=== PATIENT | male | born 1985 | race Caucasian/White ===

== ENCOUNTER 2018-03-29 13:05 | Inpatient (IN) | payer MEDICAID, SELFPAY ==
[2018-03-29 14:06] VITALS: BP 122/81; PULSE 115; RESP 18; TEMP 37.1; O2SAT 100; BMI 22.5
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
[2018-03-29] MEDS: oxyCODONE 5 MG Tablet PO (16:35)
[2018-03-29] MEDS: Magnesium Hydroxide 30 ML UDC PO (16:36)
[2018-03-29] MEDS: Acetaminophen 500 MG Tablet 1000 MG PO ×2 (16:36→21:30)
[2018-03-29] MEDS: Bisacodyl 10 MG Suppository RECTAL (17:29)
[2018-03-29] MEDS: Methocarbamol 500 MG Tablet 1250 MG PO ×2 (18:06→21:29)
[2018-03-29] MEDS: Fleet Enema 1 ML RECTAL (18:58)
[2018-03-29] MEDS: Ipratropium/Albuterol Sulfate 3 ML AMPUL.NEB INHALATION (19:40)
[2018-03-29 19:45] VITALS: PULSE 112; RESP 16
[2018-03-29] MEDS: Enoxaparin 30 MG/0.3 ML Syringe SC (20:23)
[2018-03-29] MEDS: QUEtiapine 25 MG Tablet PO (20:24)
[2018-03-29] MEDS: BACITRACIN 15 GM Tube 1 APPLIC TOPICAL (20:24)
[2018-03-29 20:29] VITALS: BP 130/67; PULSE 106; RESP 16; TEMP 36.8; O2SAT 99
[2018-03-30] MEDS: oxyCODONE 5 MG Tablet PO ×5 (00:04→21:39)
[2018-03-30 00:21] LABS: Red Blood Cells-Urine 0 SEEN /hpf (0-5); Squamous Epithelial Cells - UA 0 SEEN /hpf (0-5)
[2018-03-30 00:31] LABS: Color, Urine Yellow (Yellow); Glucose, Dipstick Normal (Normal); Ketone-Dipstick Negative (Negative); Leukocyte Esterase-Dipstick 25 /ul (Negative); Nitrite-Dipstick Negative (Negative); Occult Blood-Urine Negative /ul (Negative); Protein-Dipstick Negative (Negative); Urine Bilirubin Dipstick Negative (Negative); Urine Clarity Clear (Clear); Urine Urobilinogen 8 mg/dl (Normal); Urine pH 6.5 (5.0 - 8.0)
[2018-03-30 00:43] LABS: Bacteria RARE /hpf (None Seen); Mucous, Urine 1+ /hpf (<or=2+); White Blood Cells 0-5 SEEN /hpf (0-5)
[2018-03-30] MEDS: Acetaminophen 500 MG Tablet 1000 MG PO ×3 (06:25→21:40)
[2018-03-30] MEDS: Enoxaparin 30 MG/0.3 ML Syringe SC ×2 (06:28→17:56)
[2018-03-30 07:28] LABS: Absolute Lymphocyte Count 1.41 X10^3/ul (0.83-4.51); Absolute Neutrophil Count 6.9 X10^3/uL (2.0-7.7); Basophil# 0.02 X10^3/uL; Basophil% 0.2 % (0-1); Eosinophil# 0.29 X10^3/uL; Eosinophils% 2.9 % (0-5); Hematocrit 26.4 % (40-54); Hemoglobin 8.5 g/dl (13.0-16.5); Lymphocyte # 1.41 X10^3/ul (4.0); Lymphocyte % 14.1 % (19-41); Mean Corp Hgb Conc 32.2 g/gl (32-36); Mean Corpuscular Hgb 31.1 pg (27.0-32.0); Mean Corpuscular Volume 96.7 fL (80-94); Mean Platelet Vol. 9.2 fl (6.2-12.0); Monocyte# 1.26 X10^3/uL; Monocyte% 12.6 % (0-10); Neutrophil # 6.94 X10^3/uL (2.7-7.7); Neutrophil % 69.3 % (47-70); Platelet Count 398 K/mm3 (150-450); RBC Distribution Width CV 16.7 % (11.6-14.6); RBC Distribution Width SD 51.5 fl (35.1-43.9); Red Blood Count 2.73 M/mm3 (4.6-6.2)
[2018-03-30 07:30] LABS: POSITIVE COUNT NO; POSITIVE DIFFERENTIAL NO; POSITIVE MORPHOLOGY NO
[2018-03-30 07:40] LABS: Anion Gap 8 (5-15); BUN 21 mg/dL (7-18); Calcium,Total 8.1 mg/dL (8.5-10.1); Chloride 100 mmol/L (98-107); Creatinine, Serum 0.66 mg/dL (0.70-1.30); EST Glomerular Filtration Rate 148 mL/min (>60); Est Glom Filt Rate - Afr Amer 179 mL/min (>60); Glucose 108 mg/dL (74-106); Potassium 3.8 mmol/L (3.5-5.1); Sodium Level 137 mmol/L (136-145)
[2018-03-30 07:48] VITALS: PULSE 108; RESP 18; O2SAT 99
[2018-03-30] MEDS: Ipratropium/Albuterol Sulfate 3 ML AMPUL.NEB INHALATION (07:48)
[2018-03-30 08:00] VITALS: BP 124/66; PULSE 104; RESP 16; TEMP 36.8; O2SAT 100
[2018-03-30] MEDS: Senna/Docusate Sodium 1 Tablet 2 TABLET PO ×2 (08:24→21:41)
[2018-03-30] MEDS: Lidocaine 5% Patch 1 PATCH TOPICAL (08:24)
[2018-03-30] MEDS: Methocarbamol 500 MG Tablet 1250 MG PO ×4 (08:24→21:41)
[2018-03-30] MEDS: BACITRACIN 15 GM Tube 1 APPLIC TOPICAL ×2 (08:30→21:44)
--- NOTE | 2018-03-30 10:46 | NURSING ---
spoke with DR. Candelaria patient's ortho surgeon from [facility] for clarifications on discharge orders. Patient is to be NWB to BLE and no knee immobilizer.
--- NOTE | 2018-03-30 11:29 | NURSING ---
patient having severe pain to surgical areas and to hip and pelvis. rates pain 10/10 as a constant throbbing pain after routine tylenol and oxyir given this am. patient is participating in therapy without complaints. patient given ice and scrotum elevated d/t area is edematous. serous sanguinous drainage continues to left hip changed abd drsg x2 this shift. no s/sx of infection noted, edema remains to area. dr french aware of increase pain. oxyir changed to every 4 hours prn and dursgesic 25 mcg patch added.
[2018-03-30] MEDS: fentaNYL 25 MCG Patch TRANSDERM. (12:20)
[2018-03-30] MEDS: Hydrocortisone 2.5% Crm 1 APPLIC TOPICAL ×2 (13:09→21:43)
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
[2018-03-30 20:32] VITALS: BP 137/76; PULSE 100; RESP 18; TEMP 36.8; O2SAT 95
[2018-03-30] MEDS: QUEtiapine 25 MG Tablet PO (21:40)
[2018-03-31] MEDS: oxyCODONE 5 MG Tablet PO ×4 (05:08→20:34)
[2018-03-31] MEDS: Acetaminophen 500 MG Tablet 1000 MG PO ×3 (05:09→21:44)
[2018-03-31] MEDS: Enoxaparin 30 MG/0.3 ML Syringe SC ×2 (06:06→18:08)
[2018-03-31 07:09] VITALS: O2SAT 93
[2018-03-31] MEDS: BACITRACIN 15 GM Tube 1 APPLIC TOPICAL ×2 (08:52→21:47)
[2018-03-31] MEDS: Hydrocortisone 2.5% Crm 1 APPLIC TOPICAL ×2 (08:52→21:46)
[2018-03-31] MEDS: Senna/Docusate Sodium 1 Tablet 2 TABLET PO ×2 (08:53→21:45)
[2018-03-31] MEDS: Lidocaine 5% Patch 1 PATCH TOPICAL (08:53)
[2018-03-31] MEDS: Methocarbamol 500 MG Tablet 1250 MG PO ×4 (08:53→21:44)
[2018-03-31 08:54] VITALS: BP 131/82; PULSE 103; RESP 16; TEMP 36.7; O2SAT 99
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
--- NOTE | 2018-03-31 15:11 | REHABEVAL_ITS ---
Admission Information Status Changes from Prescreening?: No changes Identified Actual Problem List:: Pain, ALteration in Cmfrt, Mobility Impaired, Self Care Deficit, Ineffect.D/C Plan r/t Psy Potential Problem List:: DVT, Bleeding, Infection, UTI, Aspiration, Falls, Skin Integrity, Depression Risk of Complications DVT: LMWH, ERIKA Hose, Sequential Compression Device Bleeding: Monitor Lab Values, Nursing to Teach Precautions for anti-coagulation therapy., Wound, if applicable, to be assessed every shift., Stroke patients assessed for lethargy or change in status. Infection: Clinical Staff to Monitor for S/S of infection:, S/S of infection include fever, redness, warmth, etc. Urinary Tract Infection: Monitor for frequency, burning, discomfort, or incontinence., Nursing will obtain urine sample for urinalysis and C&S when ordered. Aspiration: Clinical staff will monitor for coughing, drooling, congestion., Speech will evaluate swallowing and dsyphasia., Nursing will monitor patient swallowing during meals. Falls: Patient will be evaluated for Fall Precautions, Patient will be placed on Fall Precautions as indicated per protocol. Skin Breakdown: Nursing will assess skin daily using assessment tool., Nursing will place on Skin Breakdown Precautions as indicated. Pain: Clinical staff will assess patient's pain level per protocol., Medications will be given, if needed, and the pain level reassessed., Other methods: Massage, distraction, decrease stimulus, etc. used PRN. Plan of Care Patient requires physician specializing in physical medicine and rehab oversight to provide close medical supervision of rehab issues including: Pain Management, Sleep Problems, Bowel and Bladder, Medical and co-morbidity Management, DVT prophylaxis, Rehabilitation Leadership, Coordination of treatment team Patient needs Physical Therapy: For a minimum of 1 hour, At least 5 out of 7 days Patient needs Physical Therapy to improve:: Mobility, Mobility, Mobility, Strengthening, Transfers, Stretching, ROM, Endurance, Stairs, Gait, Balance Patient needs Occupational Therapy: For a minimum of 1 hour, At least 5 out of 7 days Patient needs Occupational Therapy to improve ADL's incl.: Eating, Grooming, Bathing, Dressing, Toileting, Toilet transfers, Community Reintegration, Higher functioning activities, Household tasks, Adaptive Equipment, Splinting, Other activities as determined Patient requires 24/ Rehabilitation Nursing for: Pain Issues, Identifying and preventing risk factors, Monitoring and reporting current medical conditions, Assisting with ambulation, transfer, and all ADL's, Teaching patients about disease process and medications, Family teaching, Providing safe environment, Bowel and Bladder Issues, Skin integrity, Medication Management Patient needs Mountain Bike Guide/ Case Management for: Discharge Planning, Arranging Home Equipment or Services, Family Interventions Patient needs Dietary and Nutrition Services for: Adequate Nutrition, Nutritional Supplements, Nutritional Education Goals Patient will remain: free from falls, or injury at time of discharge. Patient will perform bed mobility at: MOD I level of assist. Patient will complete transfers from bed to chair at: MOD I level of assist. Patient will ambulate: 100 feet, with MOD I assist, with LRD Patient will complete upper body dressing at: MOD I level of assist. Patient will complete lower body dressing at: MOD I level of assist. Patient will complete toileting at: MOD I level of assist. Patient will perform bathing at: MOD I level of assist. Patient will complete grooming at: MOD I level of assist. Patient will complete home management skills at: MOD I level of assist. Patient will achieve: 12 stairs, at MOD I assist Patient will have pain level of: of 3 or less Patient's skin will: remain intact, free from infection. Patient will receive: adequate nutrition. Discharge Planning Pt Prognosis for Sig. Practical Improv. w/in Reasonable Time: Good Anticipated D/C Destination: Home with Outpt Therapy Was Preadmission Assessment Accurate?: Yes
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
--- NOTE | 2018-03-31 17:58 | NURSING ---
Dr. french aware of CT scans of abdomen and head. No new orders at this time. patient is no acute distress.
[2018-03-31 20:36] VITALS: BP 117/77; PULSE 114; RESP 18; TEMP 36.9; O2SAT 98
[2018-03-31 20:45] VITALS: PULSE 114; RESP 18; O2SAT 98
[2018-03-31] MEDS: QUEtiapine 25 MG Tablet PO (21:44)
--- NOTE | 2018-04-01 02:49 | NURSING ---
REVIEWED AND AGREE WITH [employer]ER'S FIM AND HANDOFF CHARTING.
[2018-04-01] MEDS: Acetaminophen 500 MG Tablet 1000 MG PO ×3 (05:29→21:00)
[2018-04-01] MEDS: Enoxaparin 30 MG/0.3 ML Syringe SC ×2 (05:29→17:55)
[2018-04-01 06:42] VITALS: O2SAT 98
[2018-04-01] MEDS: Divalproex (ER) 500 MG Tablet PO (07:38)
[2018-04-01] MEDS: Lidocaine 5% Patch 1 PATCH TOPICAL (07:38)
[2018-04-01] MEDS: Methocarbamol 500 MG Tablet 1250 MG PO ×4 (07:39→20:55)
[2018-04-01] MEDS: Senna/Docusate Sodium 1 Tablet 2 TABLET PO ×2 (07:39→20:58)
[2018-04-01] MEDS: oxyCODONE 5 MG Tablet PO ×4 (07:39→20:19)
[2018-04-01] MEDS: Polyethylene Glycol 3350 17 GM PACKET PO (07:39)
[2018-04-01] MEDS: BACITRACIN 15 GM Tube 1 APPLIC TOPICAL ×2 (07:44→20:46)
[2018-04-01] MEDS: Hydrocortisone 2.5% Crm 1 APPLIC TOPICAL ×2 (07:46→20:49)
[2018-04-01 08:31] VITALS: BP 144/80; PULSE 98; RESP 16; TEMP 36.6; O2SAT 99
--- NOTE | 2018-04-01 10:43 | PCM.PN.NEU ---
Subjective: Patient seen and examined. No new complaints, pain is controlled. Denies any headaches today, was started on Depakote 500mg daily, on admission. Continues to have some slight scrotal edema, but states it is getting better, no issues with urinating. Tolerating therapy. - Physical Exam General: Alert, Oriented x3, Cooperative HEENT: Atraumatic, PERRLA, EOMI, Normocephalic Neck: Supple, No JVD, Negative Carotid Bruits Lungs: Clear to auscultation, Normal air movement Cardiovascular: Regular rate, No murmurs Abdomen: Bowel Sounds Present, Soft, Non Tender Extremities: No edema, Capillary Refill Less than 3 Seconds Skin: No rashes, No breakdown Musculoskeletal: No Tenderness to Palpation of Joints or Extremities Neurological: Cranial nerves II-XII grossly intact Psych/Mental Status: Normal Affect, Appropriate, Alert and oriented to time, place, person, mood and affect Vital Signs Temp Pulse Resp BP Pulse Ox 97.9 F 98 16 144/80 H 99 04/01/18 08:31 04/01/18 08:31 04/01/18 08:31 04/01/18 08:31 04/01/18 08:31 Oxygen Delivery Method Room Air Weight: 79.54 kg Body Mass Index (BMI) 22.5 Intake and Output for Last 24 Hours 03/30/18 03/31/18 04/01/18 23:59 23:59 23:59 Intake Total 240 / 240 240 / 240 Output Total 750 / 750 150 / 150 Balance -510 / -510 -150 / -150 240 / 240 Active Medications Acetaminophen (Tylenol) 650 mg PO Q4H PRN PRN PRN Reason: PAIN Acetaminophen (Tylenol) 1,000 mg PO Q8 [facility] Last Admin: 04/01/18 05:29 Dose: 1,000 mg Albuterol/Ipratropium (Duoneb) 3 ml INHALATION Q4H PRN PRN PRN Reason: SHORTNESS OF BREATH Bacitracin (Bacitracin Ointment) 1 applic TOPICAL BID [facility] PRN Reason: Protocol Last Admin: 04/01/18 07:44 Dose: 1 applic Bisacodyl (Dulcolax) 10 mg RECTAL .PRN X 1 PRN PRN Reason: Constipation Last Admin: 03/29/18 17:29 Dose: 10 mg Divalproex Sodium (Depakote Er) 500 mg PO DAILY [facility] Last Admin: 04/01/18 07:38 Dose: 500 mg Enoxaparin Sodium (Lovenox) 30 mg SC BID@0600,1800 [facility] Last Admin: 04/01/18 05:29 Dose: 30 mg Fentanyl (Duragesic Patch) 25 mcg TRANSDERM. Q3D [facility] Last Admin: 03/30/18 12:20 Dose: 25 mcg Hydrocortisone (Hytone) 1 applic TOPICAL BID [facility] PRN Reason: Protocol Stop: 04/04/18 22:01 Last Admin: 04/01/18 07:46 Dose: 1 applicatio Lidocaine (Lidoderm Patch) 1 patch TOPICAL DAILY [facility] PRN Reason: Protocol Last Admin: 04/01/18 07:38 Dose: 1 patch Magnesium Hydroxide (Milk Of Magnesia) 30 ml PO .PRN X 1 PRN PRN Reason: Constipation Last Admin: 03/29/18 16:36 Dose: 30 ml Methocarbamol (Robaxin) 1,250 mg PO 4X/DAY [facility] Last Admin: 04/01/18 07:39 Dose: 1,250 mg Nutritional Formula (Lactose Free) (Ensure Enlive) 120 ml PO 4X/DAY [facility] Last Admin: 04/01/18 07:42 Dose: 120 ml Oxycodone HCl (Oxyir) 5 - 10 mg PO Q4H PRN PRN PRN Reason: PAIN Last Admin: 04/01/18 07:39 Dose: 10 mg Polyethylene Glycol (Miralax) 17 gm PO DAILY [facility] Last Admin: 04/01/18 07:39 Dose: 17 gm Quetiapine Fumarate (Seroquel) 25 mg PO QHS [facility] Last Admin: 03/31/18 21:44 Dose: 25 mg Senna/Docusate Sodium (Senokot-S, Bonnie-Colace) 2 tablet PO BID [facility] Last Admin: 04/01/18 07:39 Dose: 2 tablet Medical Necessity - Tobacco Use Smoking Status: Heavy Smoker (>10/day) Tobacco Use: Cigarettes Assessment/Plan Debility due to pain consequent to complex pelvic fracture status post open reduction and internal fixation as well as left femur fracture status post rodding. He has probably a lumbosacral plexopathy as well at this point. This appears to be stable furthermore he has a history of migraine headaches. His skull fracture appears to be limited to his frontal sinus by report. Plan: Physical therapy for gait and balance Occupational Therapy for ADLs As needed analgesics Bowel protocol Headaches: Will repeat a CAT scan of his brain noncontrast and initiate Depakote ER 500 mg daily Hip flexor weakness: This is probably a plexopathy and appears stable by history since his accident and surgery. I will repeat a CAT scan of his a abdomen noncontrast to evaluate for hematoma. His surgery was performed approximately 10 days ago. He will need his sutures out but he is scheduled to follow-up with his surgeon apparently a phone call to set this up will take place tomorrow.
--- NOTE | 2018-04-01 10:46 | PN.NEURO_ITS ---
Subjective: Patient seen and examined. No new complaints, pain is controlled. Denies any headaches today, was started on Depakote 500mg daily, on admission. Continues to have some slight scrotal edema, but states it is getting better, no issues with urinating. Tolerating therapy. - Physical Exam General: Alert, Oriented x3, Cooperative HEENT: Atraumatic, PERRLA, EOMI, Normocephalic Neck: Supple, No JVD, Negative Carotid Bruits Lungs: Clear to auscultation, Normal air movement Cardiovascular: Regular rate, No murmurs Abdomen: Bowel Sounds Present, Soft, Non Tender Extremities: No edema, Capillary Refill Less than 3 Seconds Skin: No rashes, No breakdown Musculoskeletal: No Tenderness to Palpation of Joints or Extremities Neurological: Cranial nerves II-XII grossly intact Psych/Mental Status: Normal Affect, Appropriate, Alert and oriented to time, place, person, mood and affect Vital Signs Temp Pulse Resp BP Pulse Ox 97.9 F 98 16 144/80 H 99 04/01/18 08:31 04/01/18 08:31 04/01/18 08:31 04/01/18 08:31 04/01/18 08:31 Oxygen Delivery Method Room Air Weight: 79.54 kg Body Mass Index (BMI) 22.5 Intake and Output for Last 24 Hours 03/30/18 03/31/18 04/01/18 23:59 23:59 23:59 Intake Total 240 / 240 240 / 240 Output Total 750 / 750 150 / 150 Balance -510 / -510 -150 / -150 240 / 240 Active Medications Acetaminophen (Tylenol) 650 mg PO Q4H PRN PRN PRN Reason: PAIN Acetaminophen (Tylenol) 1,000 mg PO Q8 [facility] Last Admin: 04/01/18 05:29 Dose: 1,000 mg Albuterol/Ipratropium (Duoneb) 3 ml INHALATION Q4H PRN PRN PRN Reason: SHORTNESS OF BREATH Bacitracin (Bacitracin Ointment) 1 applic TOPICAL BID [facility] PRN Reason: Protocol Last Admin: 04/01/18 07:44 Dose: 1 applic Bisacodyl (Dulcolax) 10 mg RECTAL .PRN X 1 PRN PRN Reason: Constipation Last Admin: 03/29/18 17:29 Dose: 10 mg Divalproex Sodium (Depakote Er) 500 mg PO DAILY [facility] Last Admin: 04/01/18 07:38 Dose: 500 mg Enoxaparin Sodium (Lovenox) 30 mg SC BID@0600,1800 [facility] Last Admin: 04/01/18 05:29 Dose: 30 mg Fentanyl (Duragesic Patch) 25 mcg TRANSDERM. Q3D [facility] Last Admin: 03/30/18 12:20 Dose: 25 mcg Hydrocortisone (Hytone) 1 applic TOPICAL BID [facility] PRN Reason: Protocol Stop: 04/04/18 22:01 Last Admin: 04/01/18 07:46 Dose: 1 applicatio Lidocaine (Lidoderm Patch) 1 patch TOPICAL DAILY [facility] PRN Reason: Protocol Last Admin: 04/01/18 07:38 Dose: 1 patch Magnesium Hydroxide (Milk Of Magnesia) 30 ml PO .PRN X 1 PRN PRN Reason: Constipation Last Admin: 03/29/18 16:36 Dose: 30 ml Methocarbamol (Robaxin) 1,250 mg PO 4X/DAY [facility] Last Admin: 04/01/18 07:39 Dose: 1,250 mg Nutritional Formula (Lactose Free) (Ensure Enlive) 120 ml PO 4X/DAY [facility] Last Admin: 04/01/18 07:42 Dose: 120 ml Oxycodone HCl (Oxyir) 5 - 10 mg PO Q4H PRN PRN PRN Reason: PAIN Last Admin: 04/01/18 07:39 Dose: 10 mg Polyethylene Glycol (Miralax) 17 gm PO DAILY [facility] Last Admin: 04/01/18 07:39 Dose: 17 gm Quetiapine Fumarate (Seroquel) 25 mg PO QHS [facility] Last Admin: 03/31/18 21:44 Dose: 25 mg Senna/Docusate Sodium (Senokot-S, Bonnie-Colace) 2 tablet PO BID [facility] Last Admin: 04/01/18 07:39 Dose: 2 tablet Medical Necessity - Tobacco Use Smoking Status: Heavy Smoker (>10/day) Tobacco Use: Cigarettes Assessment/Plan Debility due to pain consequent to complex pelvic fracture status post open reduction and internal fixation as well as left femur fracture status post rodding. He has probably a lumbosacral plexopathy as well at this point. This appears to be stable furthermore he has a history of migraine headaches. His skull fracture appears to be limited to his frontal sinus by report. Plan: Physical therapy for gait and balance Occupational Therapy for ADLs As needed analgesics Bowel protocol Headaches: Will repeat a CAT scan of his brain noncontrast and initiate Depakote ER 500 mg daily Hip flexor weakness: This is probably a plexopathy and appears stable by history since his accident and surgery. I will repeat a CAT scan of his a abdomen noncontrast to evaluate for hematoma. His surgery was performed approximately 10 days ago. He will need his sutures out but he is scheduled to follow-up with his surgeon apparently a phone call to set this up will take place tomorrow.
[2018-04-01 18:16] VITALS: BP 123/68; PULSE 112; RESP 16; TEMP 36.7; O2SAT 99
--- NOTE | 2018-04-01 18:24 | NURSING ---
removed 2 stitches from L. elbow, area is clean, dry, intact, pt tolerated well.
[2018-04-01] MEDS: QUEtiapine 25 MG Tablet PO (20:58)
[2018-04-02] MEDS: oxyCODONE 5 MG Tablet PO ×6 (01:12→22:38)
[2018-04-02] MEDS: Enoxaparin 30 MG/0.3 ML Syringe SC ×2 (05:19→16:53)
[2018-04-02] MEDS: Acetaminophen 500 MG Tablet 1000 MG PO ×3 (06:43→21:24)
[2018-04-02 07:06] VITALS: O2SAT 96
[2018-04-02] MEDS: Lidocaine 5% Patch 1 PATCH TOPICAL (08:16)
[2018-04-02] MEDS: Methocarbamol 500 MG Tablet 1250 MG PO ×4 (08:19→21:25)
[2018-04-02] MEDS: Polyethylene Glycol 3350 17 GM PACKET PO (08:20)
[2018-04-02] MEDS: Divalproex (ER) 500 MG Tablet PO (08:21)
[2018-04-02] MEDS: Senna/Docusate Sodium 1 Tablet 2 TABLET PO ×2 (08:22→21:27)
[2018-04-02] MEDS: BACITRACIN 15 GM Tube 1 APPLIC TOPICAL ×2 (08:31→21:27)
[2018-04-02] MEDS: Hydrocortisone 2.5% Crm 1 APPLIC TOPICAL ×2 (08:31→21:27)
[2018-04-02 08:46] VITALS: BP 130/72; PULSE 99; RESP 18; TEMP 36.8; O2SAT 98
[2018-04-02] MEDS: fentaNYL 25 MCG Patch TRANSDERM. (10:14)
--- NOTE | 2018-04-02 15:38 | PCM.PN.NEU ---
Subjective: Patient seen and examined. No acute events overnight. Tolerating therapy. Continues to have some acute pain more in his left knee and hip area, increased his Fentanyl patch to 37.5mcq and added on Benadryl for itching when he take the Oxy IR. Tolerating regular diet. Incision sites are C/D/I, no drainage noted, no redness noted or edema along incisions. - Physical Exam General: Alert, Oriented x3, Cooperative HEENT: Atraumatic, PERRLA, EOMI, Normocephalic Neck: Supple, No JVD, Negative Carotid Bruits Lungs: Clear to auscultation, Normal air movement Cardiovascular: Regular rate, No murmurs Abdomen: Bowel Sounds Present, Soft, Non Tender Extremities: No edema, Capillary Refill Less than 3 Seconds Skin: No rashes, No breakdown Musculoskeletal: No Tenderness to Palpation of Joints or Extremities Neurological: Cranial nerves II-XII grossly intact Psych/Mental Status: Normal Affect, Appropriate, Alert and oriented to time, place, person, mood and affect Vital Signs Temp Pulse Resp BP Pulse Ox 98.2 F 99 18 130/72 H 98 04/02/18 08:46 04/02/18 08:46 04/02/18 08:46 04/02/18 08:46 04/02/18 08:46 Oxygen Delivery Method Room Air Weight: 79.54 kg Body Mass Index (BMI) 22.5 Intake and Output for Last 24 Hours 03/31/18 04/01/18 04/02/18 23:59 23:59 23:59 Intake Total 240 / 240 480 / 480 Output Total 150 / 150 Balance -150 / -150 240 / 240 480 / 480 Microbiology Past 72 Hours 03/30/18 00:10 Urine Culture - Final Urine, Clean Catch Culture exhibits no growth. Active Medications Acetaminophen (Tylenol) 650 mg PO Q4H PRN PRN PRN Reason: PAIN Acetaminophen (Tylenol) 1,000 mg PO Q8 [facility] Last Admin: 04/02/18 13:51 Dose: 1,000 mg Albuterol/Ipratropium (Duoneb) 3 ml INHALATION Q4H PRN PRN PRN Reason: SHORTNESS OF BREATH Bacitracin (Bacitracin Ointment) 1 applic TOPICAL BID [facility] PRN Reason: Protocol Last Admin: 04/02/18 08:31 Dose: 1 applic Bisacodyl (Dulcolax) 10 mg RECTAL .PRN X 1 PRN PRN Reason: Constipation Last Admin: 03/29/18 17:29 Dose: 10 mg Divalproex Sodium (Depakote Er) 500 mg PO DAILY [facility] Last Admin: 04/02/18 08:21 Dose: 500 mg Enoxaparin Sodium (Lovenox) 30 mg SC BID@0600,1800 [facility] Last Admin: 04/02/18 05:19 Dose: 30 mg Fentanyl (Duragesic Patch) 12 mcg TRANSDERM. Q72H [facility] Last Admin: 04/02/18 10:15 Dose: 12 mcg Fentanyl (Duragesic Patch) 25 mcg TRANSDERM. Q72H [facility] Last Admin: 04/02/18 10:14 Dose: 25 mcg Hydrocortisone (Hytone) 1 applic TOPICAL BID [facility] PRN Reason: Protocol Stop: 04/04/18 22:01 Last Admin: 04/02/18 08:31 Dose: 1 applicatio Lidocaine (Lidoderm Patch) 1 patch TOPICAL DAILY [facility] PRN Reason: Protocol Last Admin: 04/02/18 08:16 Dose: 1 patch Magnesium Hydroxide (Milk Of Magnesia) 30 ml PO .PRN X 1 PRN PRN Reason: Constipation Last Admin: 03/29/18 16:36 Dose: 30 ml Methocarbamol (Robaxin) 1,250 mg PO 4X/DAY [facility] Last Admin: 04/02/18 13:50 Dose: 1,250 mg Nutritional Formula (Lactose Free) (Ensure Enlive) 120 ml PO 4X/DAY [facility] Last Admin: 04/02/18 13:51 Dose: 120 ml Oxycodone HCl (Oxyir) 5 - 10 mg PO Q4H PRN PRN PRN Reason: PAIN Last Admin: 04/02/18 13:56 Dose: 10 mg Polyethylene Glycol (Miralax) 17 gm PO DAILY [facility] Last Admin: 04/02/18 08:20 Dose: 17 gm Quetiapine Fumarate (Seroquel) 25 mg PO QHS [facility] Last Admin: 04/01/18 20:58 Dose: 25 mg Senna/Docusate Sodium (Senokot-S, Bonnie-Colace) 2 tablet PO BID [facility] Last Admin: 04/02/18 08:22 Dose: 2 tablet Medical Necessity - Tobacco Use Smoking Status: Heavy Smoker (>10/day) Tobacco Use: Cigarettes Assessment/Plan Debility due to pain consequent to complex pelvic fracture status post open reduction and internal fixation as well as left femur fracture status post rodding. He has probably a lumbosacral plexopathy as well at this point. This appears to be stable furthermore he has a history of migraine headaches. His skull fracture appears to be limited to his frontal sinus by report. Plan: Physical therapy for gait and balance Occupational Therapy for ADLs As needed analgesics Bowel protocol Headaches: Will repeat a CAT scan of his brain noncontrast and initiate Depakote ER 500 mg daily Hip flexor weakness: This is probably a plexopathy and appears stable by history since his accident and surgery. I will repeat a CAT scan of his a abdomen noncontrast to evaluate for hematoma. His surgery was performed approximately 10 days ago. He will need his sutures out but he is scheduled to follow-up with his surgeon apparently a phone call to set this up will take place tomorrow. Increase Fentanyl patch to 37.5mcq, and Benadryl to Oxy IR for itching
[2018-04-02] MEDS: QUEtiapine 25 MG Tablet PO (21:27)
[2018-04-02] MEDS: MELATONIN 3 MG TABLET PO (21:27)
[2018-04-02 21:30] VITALS: BP 133/70; PULSE 120; RESP 16; TEMP 37.1; O2SAT 100
[2018-04-02 21:32] VITALS: PULSE 120; RESP 16; O2SAT 100
[2018-04-02] MEDS: DiphenhydrAMINE 25 MG Capsule PO (22:39)
--- NOTE | 2018-04-03 02:48 | NURSING ---
Reviewed and agree with [employer] documentation
[2018-04-03] MEDS: Enoxaparin 30 MG/0.3 ML Syringe SC ×2 (06:15→17:33)
[2018-04-03] MEDS: oxyCODONE 5 MG Tablet PO ×5 (06:16→22:46)
[2018-04-03] MEDS: Acetaminophen 500 MG Tablet 1000 MG PO ×3 (06:16→22:37)
[2018-04-03] MEDS: DiphenhydrAMINE 25 MG Capsule PO ×2 (06:21→18:39)
[2018-04-03] MEDS: Divalproex (ER) 500 MG Tablet PO (08:07)
[2018-04-03] MEDS: Methocarbamol 500 MG Tablet 1250 MG PO ×4 (08:07→22:36)
[2018-04-03] MEDS: Senna/Docusate Sodium 1 Tablet 2 TABLET PO ×2 (08:08→22:36)
[2018-04-03] MEDS: Lidocaine 5% Patch 1 PATCH TOPICAL (08:08)
[2018-04-03 08:30] VITALS: BP 132/85; PULSE 97; RESP 18; TEMP 36.7; O2SAT 99
[2018-04-03] MEDS: Hydrocortisone 2.5% Crm 1 APPLIC TOPICAL ×2 (09:54→22:33)
[2018-04-03] MEDS: BACITRACIN 15 GM Tube 1 APPLIC TOPICAL ×2 (09:54→22:35)
--- NOTE | 2018-04-03 15:54 | PCM.PN.NEU ---
Subjective: Patient seen and examined. No new complaints. Tolerating therapy. Pain is better controlled since medication changes, sleeping better at night now and is having less uncontrolled pain. No issues with GI/. - Physical Exam General: Alert, Oriented x3, Cooperative HEENT: Atraumatic, PERRLA, EOMI, Normocephalic Neck: Supple, No JVD, Negative Carotid Bruits Lungs: Clear to auscultation, Normal air movement Cardiovascular: Regular rate, No murmurs Abdomen: Bowel Sounds Present, Soft, Non Tender Extremities: No edema, Capillary Refill Less than 3 Seconds Skin: No rashes, No breakdown Musculoskeletal: No Tenderness to Palpation of Joints or Extremities Neurological: Cranial nerves II-XII grossly intact Psych/Mental Status: Normal Affect, Appropriate, Alert and oriented to time, place, person, mood and affect Vital Signs Temp Pulse Resp BP Pulse Ox 98.0 F 97 18 132/85 H 99 04/03/18 08:30 04/03/18 08:30 04/03/18 08:30 04/03/18 08:30 04/03/18 08:30 Oxygen Delivery Method Room Air Weight: 79.54 kg Body Mass Index (BMI) 22.5 Intake and Output for Last 24 Hours 04/01/18 04/02/18 04/03/18 23:59 23:59 23:59 Intake Total 240 / 240 720 / 720 480 / 480 Balance 240 / 240 720 / 720 480 / 480 Microbiology Past 72 Hours 03/30/18 00:10 Urine Culture - Final Urine, Clean Catch Culture exhibits no growth. Active Medications Acetaminophen (Tylenol) 650 mg PO Q4H PRN PRN PRN Reason: PAIN Acetaminophen (Tylenol) 1,000 mg PO Q8 [facility] Last Admin: 04/03/18 13:41 Dose: 1,000 mg Albuterol/Ipratropium (Duoneb) 3 ml INHALATION Q4H PRN PRN PRN Reason: SHORTNESS OF BREATH Bacitracin (Bacitracin Ointment) 1 applic TOPICAL BID [facility] PRN Reason: Protocol Last Admin: 04/03/18 09:54 Dose: 1 applic Bisacodyl (Dulcolax) 10 mg RECTAL .PRN X 1 PRN PRN Reason: Constipation Last Admin: 03/29/18 17:29 Dose: 10 mg Diphenhydramine HCl (Benadryl) 25 mg PO Q6H PRN PRN PRN Reason: ITCHING Last Admin: 04/03/18 06:21 Dose: 25 mg Divalproex Sodium (Depakote Er) 500 mg PO DAILY [facility] Last Admin: 04/03/18 08:07 Dose: 500 mg Enoxaparin Sodium (Lovenox) 30 mg SC BID@0600,1800 [facility] Last Admin: 04/03/18 06:15 Dose: 30 mg Fentanyl (Duragesic Patch) 12 mcg TRANSDERM. Q72H [facility] Last Admin: 04/02/18 10:15 Dose: 12 mcg Fentanyl (Duragesic Patch) 25 mcg TRANSDERM. Q72H [facility] Last Admin: 04/02/18 10:14 Dose: 25 mcg Hydrocortisone (Hytone) 1 applic TOPICAL BID [facility] PRN Reason: Protocol Stop: 04/04/18 22:01 Last Admin: 04/03/18 09:54 Dose: 1 applicatio Lidocaine (Lidoderm Patch) 1 patch TOPICAL DAILY [facility] PRN Reason: Protocol Last Admin: 04/03/18 08:08 Dose: 1 patch Magnesium Hydroxide (Milk Of Magnesia) 30 ml PO .PRN X 1 PRN PRN Reason: Constipation Last Admin: 03/29/18 16:36 Dose: 30 ml Melatonin (Melatonin) 3 mg PO QHS [facility] Last Admin: 04/02/18 21:27 Dose: 3 mg Methocarbamol (Robaxin) 1,250 mg PO 4X/DAY [facility] Last Admin: 04/03/18 13:42 Dose: 1,250 mg Nutritional Formula (Lactose Free) (Ensure Enlive) 120 ml PO 4X/DAY [facility] Last Admin: 04/03/18 13:42 Dose: 120 ml Oxycodone HCl (Oxyir) 5 - 10 mg PO Q4H PRN PRN PRN Reason: PAIN Last Admin: 04/03/18 14:29 Dose: 10 mg Polyethylene Glycol (Miralax) 17 gm PO DAILY [facility] Last Admin: 04/03/18 09:55 Dose: Not Given Quetiapine Fumarate (Seroquel) 25 mg PO QHS [facility] Last Admin: 04/02/18 21:27 Dose: 25 mg Senna/Docusate Sodium (Senokot-S, Bonnie-Colace) 2 tablet PO BID [facility] Last Admin: 04/03/18 08:08 Dose: 2 tablet Medical Necessity - Tobacco Use Smoking Status: Heavy Smoker (>10/day) Tobacco Use: Cigarettes Assessment/Plan Debility due to pain consequent to complex pelvic fracture status post open reduction and internal fixation as well as left femur fracture status post rodding. He has probably a lumbosacral plexopathy as well at this point. This appears to be stable furthermore he has a history of migraine headaches. His skull fracture appears to be limited to his frontal sinus by report. Plan: Physical therapy for gait and balance Occupational Therapy for ADLs As needed analgesics Bowel protocol Headaches: Will repeat a CAT scan of his brain noncontrast and initiate Depakote ER 500 mg daily Hip flexor weakness: This is probably a plexopathy and appears stable by history since his accident and surgery. I will repeat a CAT scan of his a abdomen noncontrast to evaluate for hematoma. His surgery was performed approximately 10 days ago. He will need his sutures out but he is scheduled to follow-up with his surgeon apparently a phone call to set this up will take place tomorrow. Increase Fentanyl patch to 37.5mcq, and Benadryl to Oxy IR for itching
--- NOTE | 2018-04-03 15:58 | PN.NEURO_ITS ---
Subjective: Patient seen and examined. No new complaints. Tolerating therapy. Pain is better controlled since medication changes, sleeping better at night now and is having less uncontrolled pain. No issues with GI/. - Physical Exam General: Alert, Oriented x3, Cooperative HEENT: Atraumatic, PERRLA, EOMI, Normocephalic Neck: Supple, No JVD, Negative Carotid Bruits Lungs: Clear to auscultation, Normal air movement Cardiovascular: Regular rate, No murmurs Abdomen: Bowel Sounds Present, Soft, Non Tender Extremities: No edema, Capillary Refill Less than 3 Seconds Skin: No rashes, No breakdown Musculoskeletal: No Tenderness to Palpation of Joints or Extremities Neurological: Cranial nerves II-XII grossly intact Psych/Mental Status: Normal Affect, Appropriate, Alert and oriented to time, place, person, mood and affect Vital Signs Temp Pulse Resp BP Pulse Ox 98.0 F 97 18 132/85 H 99 04/03/18 08:30 04/03/18 08:30 04/03/18 08:30 04/03/18 08:30 04/03/18 08:30 Oxygen Delivery Method Room Air Weight: 79.54 kg Body Mass Index (BMI) 22.5 Intake and Output for Last 24 Hours 04/01/18 04/02/18 04/03/18 23:59 23:59 23:59 Intake Total 240 / 240 720 / 720 480 / 480 Balance 240 / 240 720 / 720 480 / 480 Microbiology Past 72 Hours 03/30/18 00:10 Urine Culture - Final Urine, Clean Catch Culture exhibits no growth. Active Medications Acetaminophen (Tylenol) 650 mg PO Q4H PRN PRN PRN Reason: PAIN Acetaminophen (Tylenol) 1,000 mg PO Q8 [facility] Last Admin: 04/03/18 13:41 Dose: 1,000 mg Albuterol/Ipratropium (Duoneb) 3 ml INHALATION Q4H PRN PRN PRN Reason: SHORTNESS OF BREATH Bacitracin (Bacitracin Ointment) 1 applic TOPICAL BID [facility] PRN Reason: Protocol Last Admin: 04/03/18 09:54 Dose: 1 applic Bisacodyl (Dulcolax) 10 mg RECTAL .PRN X 1 PRN PRN Reason: Constipation Last Admin: 03/29/18 17:29 Dose: 10 mg Diphenhydramine HCl (Benadryl) 25 mg PO Q6H PRN PRN PRN Reason: ITCHING Last Admin: 04/03/18 06:21 Dose: 25 mg Divalproex Sodium (Depakote Er) 500 mg PO DAILY [facility] Last Admin: 04/03/18 08:07 Dose: 500 mg Enoxaparin Sodium (Lovenox) 30 mg SC BID@0600,1800 [facility] Last Admin: 04/03/18 06:15 Dose: 30 mg Fentanyl (Duragesic Patch) 12 mcg TRANSDERM. Q72H [facility] Last Admin: 04/02/18 10:15 Dose: 12 mcg Fentanyl (Duragesic Patch) 25 mcg TRANSDERM. Q72H [facility] Last Admin: 04/02/18 10:14 Dose: 25 mcg Hydrocortisone (Hytone) 1 applic TOPICAL BID [facility] PRN Reason: Protocol Stop: 04/04/18 22:01 Last Admin: 04/03/18 09:54 Dose: 1 applicatio Lidocaine (Lidoderm Patch) 1 patch TOPICAL DAILY [facility] PRN Reason: Protocol Last Admin: 04/03/18 08:08 Dose: 1 patch Magnesium Hydroxide (Milk Of Magnesia) 30 ml PO .PRN X 1 PRN PRN Reason: Constipation Last Admin: 03/29/18 16:36 Dose: 30 ml Melatonin (Melatonin) 3 mg PO QHS [facility] Last Admin: 04/02/18 21:27 Dose: 3 mg Methocarbamol (Robaxin) 1,250 mg PO 4X/DAY [facility] Last Admin: 04/03/18 13:42 Dose: 1,250 mg Nutritional Formula (Lactose Free) (Ensure Enlive) 120 ml PO 4X/DAY [facility] Last Admin: 04/03/18 13:42 Dose: 120 ml Oxycodone HCl (Oxyir) 5 - 10 mg PO Q4H PRN PRN PRN Reason: PAIN Last Admin: 04/03/18 14:29 Dose: 10 mg Polyethylene Glycol (Miralax) 17 gm PO DAILY [facility] Last Admin: 04/03/18 09:55 Dose: Not Given Quetiapine Fumarate (Seroquel) 25 mg PO QHS [facility] Last Admin: 04/02/18 21:27 Dose: 25 mg Senna/Docusate Sodium (Senokot-S, Bonnie-Colace) 2 tablet PO BID [facility] Last Admin: 04/03/18 08:08 Dose: 2 tablet Medical Necessity - Tobacco Use Smoking Status: Heavy Smoker (>10/day) Tobacco Use: Cigarettes Assessment/Plan Debility due to pain consequent to complex pelvic fracture status post open reduction and internal fixation as well as left femur fracture status post rodding. He has probably a lumbosacral plexopathy as well at this point. This appears to be stable furthermore he has a history of migraine headaches. His skull fracture appears to be limited to his frontal sinus by report. Plan: Physical therapy for gait and balance Occupational Therapy for ADLs As needed analgesics Bowel protocol Headaches: Will repeat a CAT scan of his brain noncontrast and initiate Depakote ER 500 mg daily Hip flexor weakness: This is probably a plexopathy and appears stable by history since his accident and surgery. I will repeat a CAT scan of his a abdomen noncontrast to evaluate for hematoma. His surgery was performed approximately 10 days ago. He will need his sutures out but he is scheduled to follow-up with his surgeon apparently a phone call to set this up will take place tomorrow. Increase Fentanyl patch to 37.5mcq, and Benadryl to Oxy IR for itching
[2018-04-03 19:55] VITALS: BP 129/67; PULSE 121; RESP 20; TEMP 38.2; O2SAT 96
--- NOTE | 2018-04-03 20:00 | NURSING ---
ONE OF PT'S BLANKETS REMOVED AND THERMOSTAT IN ROOM DECREASED TO 70 DEGREES f. WILL RECHECK TEMP SHORTLY.
[2018-04-03 20:50] VITALS: TEMP 37.1
[2018-04-03 22:00] VITALS: PULSE 87; O2SAT 95
[2018-04-03] MEDS: MELATONIN 3 MG TABLET PO (22:36)
[2018-04-03] MEDS: QUEtiapine 25 MG Tablet PO (22:46)
--- NOTE | 2018-04-04 04:29 | NURSING ---
REVIEWED AND AGREE WITH AFTER SCHO[employer] COUNSELOR'S HANDOFF CHARTING.
[2018-04-04] MEDS: Senna/Docusate Sodium 1 Tablet 2 TABLET PO ×2 (06:24→21:31)
[2018-04-04] MEDS: oxyCODONE 5 MG Tablet PO ×5 (06:26→23:53)
[2018-04-04] MEDS: Acetaminophen 500 MG Tablet 1000 MG PO ×3 (06:27→21:31)
[2018-04-04] MEDS: DiphenhydrAMINE 25 MG Capsule PO ×2 (06:27→15:04)
[2018-04-04] MEDS: Divalproex (ER) 500 MG Tablet PO (06:27)
[2018-04-04] MEDS: Methocarbamol 500 MG Tablet 1250 MG PO ×4 (06:28→21:32)
[2018-04-04] MEDS: Hydrocortisone 2.5% Crm 1 APPLIC TOPICAL ×2 (06:32→21:33)
[2018-04-04] MEDS: BACITRACIN 15 GM Tube 1 APPLIC TOPICAL ×2 (06:33→21:32)
[2018-04-04] MEDS: Lidocaine 5% Patch 1 PATCH TOPICAL (06:34)
[2018-04-04] MEDS: Enoxaparin 30 MG/0.3 ML Syringe SC ×2 (06:37→18:08)
--- NOTE | 2018-04-04 07:30 | NURSING ---
ZAYDA to appt with ambulance cot transport.
[2018-04-04 08:01] VITALS: BP 135/77; PULSE 113; RESP 16; TEMP 37.4; O2SAT 98
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
--- NOTE | 2018-04-04 15:59 | CASEMGMT ---
Team meeting held. Patient present as well as patient mother. No discharge date set at this time. Patient to continue with further care and treatment on the Inpatient Rehab Unit. Patient would like to discharge as soon as equipment is set. Team is agreeable to this plan as patient has been doing well. Patient needs a wheelchair, sliding board, 3-in-1 bedside commode, and shower chair. Patient reporting to have a shower chair but to need all other equipment set up. Patient has no preference of [employer] to be utilized. Physical and Occupational therapy are recommending for patient to have continued services through home health care. Patient is agreeable to recommendation and does not have a preference of company. Patient plans to discharge to home with significant other and family for support. Patient reporting to have 24hr care set up within the home at this time and to have a ramp set up to enter the home. Patient family would provide transportation home for patient at time of discharge. Support given. Telephone call to Ciera Barcenas. This sr. social media & mobile manager making referral for wheelchair, sliding board, and 3-in-1 bedside commode. Orders faxed. Ciera reporting to be able to possibly have all equipment ready by Sunday but to not be sure about this. Ciera to contact sr. social media & mobile manager to communicate when equipment is confirmed to be able to be delivered to patient room. Spoke with team and patient again. Tentative plan is for patient to discharge to home on 04/06/18 pending if equipment can be confirmed to be ready on Sunday. Telephone call to Lamar Lopez. Referral made for physical and occupational therapy. Clinical information faxed. Will fax orders when obtained. Will continue to follow. Tentative discharge date: 04/06/18 PLAN: Discharge to home with family and home health services. Salma ALARCON, BOOKS SALESPERSON
[2018-04-04 21:24] VITALS: BP 136/79; PULSE 125; RESP 16; TEMP 37.2; O2SAT 99
[2018-04-04] MEDS: QUEtiapine 25 MG Tablet PO (21:31)
[2018-04-04] MEDS: MELATONIN 3 MG TABLET PO (21:55)
[2018-04-05] MEDS: oxyCODONE 5 MG Tablet PO ×5 (04:56→22:21)
[2018-04-05] MEDS: DiphenhydrAMINE 25 MG Capsule PO (05:00)
[2018-04-05] MEDS: Enoxaparin 30 MG/0.3 ML Syringe SC ×2 (05:01→17:20)
[2018-04-05] MEDS: Acetaminophen 500 MG Tablet 1000 MG PO ×3 (05:44→22:23)
[2018-04-05 08:54] VITALS: BP 132/68; PULSE 116; RESP 16; TEMP 37.2; O2SAT 98
[2018-04-05] MEDS: Lidocaine 5% Patch 1 PATCH TOPICAL (09:29)
[2018-04-05] MEDS: Senna/Docusate Sodium 1 Tablet 2 TABLET PO ×2 (09:29→22:20)
[2018-04-05] MEDS: Divalproex (ER) 500 MG Tablet PO (09:30)
[2018-04-05] MEDS: Methocarbamol 500 MG Tablet 1250 MG PO (09:30)
[2018-04-05] MEDS: BACITRACIN 15 GM Tube 1 APPLIC TOPICAL ×2 (09:31→20:04)
[2018-04-05] MEDS: fentaNYL 25 MCG Patch TRANSDERM. (09:43)
--- NOTE | 2018-04-05 11:25 | CASEMGMT ---
Addendum entered by Beverly Liriano 04/05/18 12:50: All DME delivered to room. Pt confirms plan for d/c home tomorrow 04/06. AGNES Molina Original Note: Social Work Phone call to Ciera at [facility] who states they do have the wheelchair and BSC. Sliding board is to be delivered today around 1pm. After this item is delivered [place] will call and confirm. BELEN met with pt and informed of above. Pt is understanding and planning on d/c home tomorrow. Pt is agreeable with home PT/OT through [facility]. Orders faxed to [facility]. GABRIELA Benjamin aware of plan to d/c tomorrow. BELEN will followup with [facility] to confirm sliding board, all other d/c needs complete. AGNES Molina
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
[2018-04-05 16:59] VITALS: BP 124/71; PULSE 115; RESP 16; TEMP 36.7; O2SAT 98
[2018-04-05] MEDS: Methocarbamol 750 MG Tablet PO ×2 (17:20→22:22)
[2018-04-05] MEDS: Methocarbamol 500 MG Tablet PO ×2 (17:21→22:21)
[2018-04-05 19:46] VITALS: BP 133/81; PULSE 124; RESP 16; TEMP 37.3; O2SAT 100
--- NOTE | 2018-04-05 20:06 | NURSING ---
Discharge instructions given; Instructed on meds, times to be taken, diet, activity, appointment (pt has made). Girlfriend at side, also heard instructions. Both state they have no further questions.
[2018-04-05] MEDS: QUEtiapine 25 MG Tablet PO (22:20)
[2018-04-05] MEDS: MELATONIN 3 MG TABLET PO (22:21)
[2018-04-06] MEDS: oxyCODONE 5 MG Tablet PO (06:20)
[2018-04-06] MEDS: Acetaminophen 500 MG Tablet 1000 MG PO (06:20)
[2018-04-06] MEDS: Enoxaparin 30 MG/0.3 ML Syringe SC (06:21)
[2018-04-06] MEDS: Lidocaine 5% Patch 1 PATCH TOPICAL (07:41)
[2018-04-06] MEDS: Methocarbamol 750 MG Tablet PO (07:41)
[2018-04-06] MEDS: Senna/Docusate Sodium 1 Tablet 2 TABLET PO (07:41)
[2018-04-06] MEDS: Methocarbamol 500 MG Tablet PO (07:42)
[2018-04-06] MEDS: Divalproex (ER) 500 MG Tablet PO (07:42)
[2018-04-06 09:54] VITALS: BP 124/71; PULSE 115; RESP 16; TEMP 36.7; O2SAT 98
--- NOTE | 2018-04-06 10:10 | NURSING ---
Pt discharged home, Mother came to pick pt up. Pt had all personal belongings in hand, along with medications from pharmacy. Pt in stable condition.
--- NOTE | 2018-04-09 16:15 | CASEMGMT ---
Insurance Notified insurance of patient discharge on 04/06/18 to home with significant other and home health services. Auth#[id number] Salma ALARCON, DRY CHAIN WORKER
--- NOTE | 2018-04-10 14:27 | CASEMGMT ---
Social Work Telephone call from patient significant other, Mango. Mango stating that home health had not come out to patient home yet and is wondering when the home health will be starting. This social staff worker noting that the home health was set up through [facility]. Telephone call to [facility]. Margarita. Margarita reporting to have gotten the referral and to have not been able to accept referral due to the insurance and to have sent the referral to [facility] - [phone]. Margarita reporting to have inquired with [facility] in regards to the referral and to have not heard back yet. This social staff worker planning to give [facility] some time to get back to [facility]. Margarita reporting to have given [facility] this social workers contact info. This social staff worker inquiring as to why [facility] did not call this social staff worker to inform that referral was sent to another home health. Margarita unable to answer the question. This social staff worker recommending for [facility] to give this social staff worker call if they are unable to accept a referral and then this social staff worker can get in contact with another home health company. This social staff worker also informing Margarita that [facility] did say they could take [facility] (Medicaid only) at the time of the referral being made. Margarita voicing understanding and plans to look into this further. Telephone call to Mango. Voicemail left informing of above information and encouraging Mango to call this social staff worker back if patient receives any phone calls from home health. This social staff worker to keep following up with patient and patient family on issue. Will continue to follow. Salma ALARCON, ADVANCE SCOUT
--- NOTE | 2018-04-11 10:28 | CASEMGMT ---
Social Work Telephone call to [facility], [facility] reporting to have received an e-mail in regards to referral and to be looking into the case and to be getting back to this social security specialist later today. Telephone call to Mango, this social security specialist communicating above information. Mango reporting to have heard nothing about the home health yet from their end. Will continue to follow as needed. Salma ALARCON, CARE MANAGEMENT ASSISTANT
--- NOTE | 2018-04-11 14:16 | CASEMGMT ---
Social Work Telephone call to [facility] ([place] Kirsty. Kirsty is able to accept patient and will begin services for tomorrow for physical and occupational therapy as well as [facility]. Updated orders faxed. Notified patient and patient girlfriend of above information. No further needs at this time. Salma ALARCON, QUARTZ ORIENTATOR
== END 2018-04-06 10:14 | disposition home or self-care (01) | DRG 249 ==
PROVIDERS: Admitting Provider Psychiatry & Neurology Neurology; Visit Provider Internal Medicine
DX: S32.9XXD Fracture of unspecified parts of lumbosacral spine and pelvis, subsequent encounter for fracture with routine healing (principal); R33.9 Retention of urine, unspecified; D62 Acute posthemorrhagic anemia; S02.19XD Other fracture of base of skull, subsequent encounter for fracture with routine healing; S32.10XD Unspecified fracture of sacrum, subsequent encounter for fracture with routine healing; V49.9XXD Car occupant (driver) (passenger) injured in unspecified traffic accident, subsequent encounter; K59.00 Constipation, unspecified; N50.89 Other specified disorders of the male genital organs; S72.8X2D Other fracture of left femur, subsequent encounter for closed fracture with routine healing; F17.210 Nicotine dependence, cigarettes, uncomplicated; G43.909 Migraine, unspecified, not intractable, without status migrainosus
CPT/HCPCS: 36415; 70450; 74176; 80048; 81001; 85025; 87086; 94640; 97110; 97162; 97166; 97530; 97535; 99406

== ENCOUNTER 2018-04-12 06:32 | Emergency (ER) | payer MEDICAID, SELFPAY ==
[2018-04-12 06:32] VITALS: BP 128/88; PULSE 104; RESP 20; TEMP 37.1; O2SAT 100; BMI 19.8
[2018-04-12 07:41] LABS: Bacteria 0 SEEN /hpf (None Seen); Mucous, Urine 0 SEEN /hpf (<or=2+)
[2018-04-12 07:46] LABS: Color, Urine Yellow (Yellow); Glucose, Dipstick Normal (Normal); Ketone-Dipstick Negative (Negative); Leukocyte Esterase-Dipstick 25 /ul (Negative); Nitrite-Dipstick Negative (Negative); Occult Blood-Urine Negative /ul (Negative); Protein-Dipstick Negative (Negative); Urine Bilirubin Dipstick Negative (Negative); Urine Clarity Clear (Clear); Urine Urobilinogen Normal (Normal)
[2018-04-12 07:51] LABS: Red Blood Cells-Urine 0 SEEN /hpf (0-5); Squamous Epithelial Cells - UA 0-5 SEEN /hpf (0-5); White Blood Cells 0-5 SEEN /hpf (0-5)
[2018-04-12 07:55] LABS: Absolute Neutrophil Count 5.3 X10^3/uL (2.0-7.7); Basophil# 0.03 X10^3/uL; Basophil% 0.4 % (0-1); Eosinophil# 0.18 X10^3/uL; Eosinophils% 2.3 % (0-5); Hematocrit 31.9 % (40-54); Hemoglobin 9.9 g/dl (13.0-16.5); Lymphocyte % 19.1 % (19-41); Mean Corpuscular Hgb 29.9 pg (27.0-32.0); Mean Corpuscular Volume 96.4 fL (80-94); Mean Platelet Vol. 8.2 fl (6.2-12.0); Monocyte# 0.78 X10^3/uL; Monocyte% 9.9 % (0-10); Neutrophil # 5.31 X10^3/uL (2.7-7.7); Neutrophil % 67.7 % (47-70); POSITIVE COUNT NO; POSITIVE DIFFERENTIAL NO; POSITIVE MORPHOLOGY NO; Platelet Count 730 K/mm3 (150-450); RBC Distribution Width CV 16.5 % (11.6-14.6); Red Blood Count 3.31 M/mm3 (4.6-6.2); White Blood Count 7.9 K/mm3 (4.4-11.0)
[2018-04-12] MEDS: 0.9% Normal Saline 1,000 ML 1000 ML IV (07:56)
--- NOTE | 2018-04-12 08:16 | ED.VISSUMM ---
- ER Visit Summary Date of Service: 04/12/18 Chief Complaint: Fever History of Present Illness: The patient is a 33 M who presents with a fever that has been intermittent over the past 5 days. Patient states his fever only comes on at night. Patient states his fever was up to 101.9 at home. Patient admits to some diarrhea. Patient states it has been watery. Patient states he has had the diarrhea for the past 3 days. Patient denies any melena or hematochezia. Patient denies any nausea or vomiting. Patient denies any chest pain or shortness of breath. Patient does admit to a slight cough. Patient states he has had recent surgery for pelvic and femur fractures. Patient states he has been taking oxycodone and Benadryl for the pain. Patient also admits to some intermittent testicular pain and swelling. Physical Examination: Vital signs are stable. Patient is afebrile. Patient is in no acute distress. Oral mucosa is pink and moist. Neck is supple. Trachea is midline. There is no JVD noted. Heart was regular rate and rhythm. Lungs are clear and equal bilaterally. There is adequate respiratory effort noted. Abdomen is soft. Bowel sounds are normal. There is no tenderness. There is no guarding noted. There is no rebound. exam showed some mild testicular tenderness bilaterally. There is no swelling noted. There are no masses palpated. There are no hernias noted. There is also some mild tenderness over the pubic symphysis. There is no erythema along the incisions. There is no discharge or drainage. Cranial nerves II through XII are intact. There are no focal motor or sensory deficits noted. The remaining physical exam is within normal limits. Test Results: CBC showed thrombocytosis of 730. Hemoglobin was low at 9.9 however, this was improved compared to previous result. Basic metabolic profile was normal. Urinalysis was normal. Chest x-ray does not show any acute infiltrate. Emergency Department Course and Treatment: Patient felt better on reevaluation. Patient was instructed to take 10-15 deep breaths every hour while awake to prevent atelectasis which may be a cause of fever. Patient was instructed to follow-up with his primary care physician and orthopedic surgeon as scheduled. Patient understood and was agreeable with the plan. All questions were answered. Disposition: Discharge home Impression: Fever of unknown origin This note was generated with [employer] dictation software. It may contain incorrect words, spelling, and punctuation that were not noted in review of the chart prior to signing ED Disposition - Plan for ED Patient: Disposition: Home or Assisted Living Chief Complaint: Fever Diagnosis: Fever of unknown origin Instructions: ED Fever Unconf Cause Referrals: Care Physician,No Primary [Primary Care Provider] -
[2018-04-12 08:19] LABS: Anion Gap 7 (5-15); BUN 10 mg/dL (7-18); BUN/Creat Ratio 16.6 RATIO (10-20); Chloride 104 mmol/L (98-107); EST Glomerular Filtration Rate 164 mL/min (>60); Est Glom Filt Rate - Afr Amer 198 mL/min (>60); Estimated Creatinine Clearance 172.88 ml/min; Glucose 98 mg/dL (74-106); Potassium 4.2 mmol/L (3.5-5.1); Sodium Level 142 mmol/L (136-145)
[2018-04-12 08:32] VITALS: BP 116/81
[2018-04-12 09:52] VITALS: BP 122/70; PULSE 61; RESP 15; O2SAT 98
== END 2018-04-12 09:53 | disposition home or self-care (01) ==
PROVIDERS: Emergency Provider Emergency Medicine
DX: R50.9 Fever, unspecified (principal); R19.7 Diarrhea, unspecified; R05 Cough; Z72.0 Tobacco use; Z79.899 Other long term (current) drug therapy
CPT/HCPCS: 71045; 80048; 81001; 85025; 96360; 96361; 99285; J7030

== ENCOUNTER → 2018-04-22 11:50 | Outpatient (CLI) | payer MEDICAID, SELFPAY ==
[2018-04-22 12:36] LABS: Amphetamine Urine VISTA NEGATIVE (<1000 ng/mL); Barbiturate Urine VISTA NEGATIVE (< 200 ng/mL); Benzodiazepine Urine VISTA NEGATIVE (< 200 ng/mL); Cocaine Urine VISTA NEGATIVE (< 300 ng/mL); Ecstacy Urine VISTA NEGATIVE (< 500 ng/mL); Methadone Urine VISTA NEGATIVE (< 300 ng/mL); PCP Urine VISTA NEGATIVE (< 25 ng/mL); THC Urine VISTA NEGATIVE (< 50 ng/mL); Vista UDS pH Range 7
== END ==
PROVIDERS: Visit Provider Anesthesiology Pain Medicine
DX: F11.20 Opioid dependence, uncomplicated (principal)
CPT/HCPCS: 80307

== ENCOUNTER 2018-08-30 12:00 | Outpatient (RCR) | payer MEDICAID, SELFPAY ==
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
--- NOTE | 2018-06-19 15:32 | HP.PTREVAL ---
Javy Candelaria MD, It has been my pleasure to treat ALCIDES BENITEZ over the last 6 visits for L femur and pelvic fractures. Please see the progress note below for an update on the physical therapy plan of care! Subjective: Was able to start putting weight on his leg on - WBAT. They want him to use a rollerator so he has a seat but he came today with a cane. Worst: 01/13 agg: being up on it. Eases: pain pills, get off of it. up 25% of the day. Goes back to the MD in 3 months. Can do stairs- down is worse than up. Objective/Function: Posture: FH, RS- can correct with verbal cueing but does not maintain. Gait: using single point cane- decreased stance on the left LE- wearing slide on sandles due to sensation issues. Stairs: 1 HR and cane with step to pattern for both asc/desc. SLS: wS but unable to SLS on left Right: 30 seconds without LOB. HR/TR: able with weight shifted more onto the right. ROM: WFL in all planes. Strength: Right: ankle: 5/5, knee: 5/5, hip: 4/5 Core: fair minus Left: Ankle: 4/5, Knee: 4/5, Hip: abd: 3+/5, flexion: 4-/5, extn: 4-/5, add: 4/5, IR/ER: not tested Plan Plan: Continue 3x a week for 4 weeks- for 2 on land and 1 in the pool- 60 min land and 30 min water Goals Goal 1:: Pt. will be I with HEP and progressions. Goal Time Frame: 4-6 Weeks Goal 2:: Patient will ambulate >300 feet with LRD and a normalized pattern Goal Time Frame: 8-12 Weeks Goal 3:: Patient will asc/desc 8' stairs recip Goal Time Frame: 8-12 Weeks Goal 4:: Patient will demo 4+/5 strength in LE Goal Time Frame: 8-12 Weeks Goal 5:: Patient will maintain proper posture t/o tx session to demo increased core s/s. Goal Time Frame: 8-12 Weeks Goal 6:: Pt. will demonstrate LLE strength to at least 4/5. Goal Time Frame: 4-6 Weeks Anticipated Interventions Patient/Client Instruction: Educate patient on: Condition For the Purpose of:: To decrease pain, To increase ROM, To improve muscle performance and motor function, To improve ability to perform ADL's, To increase flexibility/ROM, To improve endurance, To improve safety with gait Therapeutic Exercise to Include: Strength training, Power training, Balance training, Body mechanics, Flexibilty training, Gait and locomotor training, Passive ROM, Active ROM Comment: NWB bilateral lower extremity. For the Purpose of:: To decrease pain, To improve muscle performance and motor function, To improve ability to perform ADL's, To increase tolerance to activity/condition/position, To improve performance and independence with ADL's, To improve gait and locomotor functions, To increase flexibility/ROM, To improve endurance, To improve balance TENS: Yes Cryotherapy (ice pack, ice massage): Yes Thermo therapy (hot pack): Yes Ultrasound (thermal/non thermal): No For the Purpose of:: To decrease pain Please do not hesitate to contact me at [phone] by phone or if you have questions or concerns regarding this new plan of care! Sincerely, Anahy Moran
--- NOTE | 2018-08-02 10:42 | HP.PTREVAL_ITS ---
Javy Candelaria MD, It has been my pleasure to treat ALCIDES BENITEZ over the last 13 visits for L femur and pelvic fractures. Please see the progress note below for an update on the physical therapy plan of care! Subjective: Patient reports that the weights here have helped to increase his strength. Pelvic pain comes and goes- worst: 5/10 Agg: being up and moving- ex getting the clothes from the basement. Best: 0/10 Eases: take a hot shower or lay down. But he has been taking Tylenol and Motrin to help. Left foot is horrible he has nerve pain- still does not feel like he can wear shoes- can wear cloggs - does not like to wear socks. The right foot isn't really a problem. The right leg is still numb. Patient feels like he is 40%. [employer] is not bringing him so he is now able to make more apts. Uses the cane all the time- tries to walk without it but it hurts his back. Is doing stairs at home- uses the hand rail and cane does them recip. Objective/Function: Posture: FH, RS- can correct with verbal cueing but does not maintain. Gait: using single point cane- decreased stance on the left LE- wear ing slip on clogs due to sensation issues. When ambulating without the straight cane he is slow with decreased stance on the left LE with hip drop Stairs: no assistive device and can perform reciprocally- very unsteady and slow SLS: Left 9 seconds and then requires UE a to maintain upright position Right: 30 seconds without LOB. HR/TR: able with weight shifted more onto the right. ROM: WFL in all planes. Strength: Right: ankle: 5/5, knee: 5/5, hip: 4/5 Core: fair minus Left: Ankle: 4+/5, Knee extn: 4+/5 Knee flexion: 4/5 with pain, Hip: abd: 4-/5, flexion: 4/5, extn: 4/5, add: 4+/5, IR/ER: 4/5 in isometric Plan Plan: Continue 3x a week for 4 weeks- progress strength and functional mobility Goals Goal 1:: Pt. will be I with HEP and progressions. Goal Time Frame: 4-6 Weeks Goal 2:: Patient will ambulate >300 feet with LRD and a normalized pattern Goal Time Frame: 8-12 Weeks Goal 3:: Patient will asc/desc 8' stairs recip Goal Time Frame: 8-12 Weeks Goal 4:: Patient will demo 4+/5 strength in LE Goal Time Frame: 8-12 Weeks Goal 5:: Patient will maintain proper posture t/o tx session to demo increased c ore s/s. Goal Time Frame: 8-12 Weeks Goal 6:: Pt. will demonstrate LLE strength to at least 4/5. Goal Time Frame: 4-6 Weeks Anticipated Interventions Patient/Client Instruction: Educate patient on: Condition For the Purpose of:: To decrease pain, To increase ROM, To improve muscle performance and motor function, To improve ability to perform ADL's, To increase flexibility/ROM, To improve endurance, To improve safety with gait Therapeutic Exercise to Include: Strength training, Power training, Balance training, Body mechanics, Flexibilty training, Gait and locomotor training, Passive ROM, Active ROM Comment: NWB bilateral lower extremity. For the Purpose of:: To decrease pain, To improve muscle performance and motor function, To improve ability to perform ADL's, To increase tolerance to activity/condition/position, To improve performance and independence with ADL's, To improve gait and locomotor functions, To increase flexibility/ROM, To improve endurance, To improve balance TENS: Yes Cryotherapy (ice pack, ice massage): Yes Thermo therapy (hot pack): Yes Ultrasound (thermal/non thermal): No For the Purpose of:: To decrease pain Please do not hesitate to contact me at [phone] by phone or if you have questions or concerns regarding this new plan of care! Sincerely, Anahy Moran DPT
== END 2018-08-30 17:00 | disposition home or self-care (01) ==
LOC: PT 12:00
PROVIDERS: Family Provider Family Medicine; PCP Family Medicine; Referring Provider Orthopaedic Surgery; Visit Provider Orthopaedic Surgery
DX: S32.9XXD Fracture of unspecified parts of lumbosacral spine and pelvis, subsequent encounter for fracture with routine healing (principal); S72.352D Displaced comminuted fracture of shaft of left femur, subsequent encounter for closed fracture with routine healing
CPT/HCPCS: 97110; 97116; 97161; 97164

== ENCOUNTER → 2019-01-01 07:45 | Outpatient (CLI) | payer MEDICAID, SELFPAY ==
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
== END ==
PROVIDERS: Family Provider Family Medicine; PCP Family Medicine; Referring Provider Clinical Nurse Specialist Acute Care; Visit Provider Clinical Nurse Specialist Acute Care
DX: G62.9 Polyneuropathy, unspecified (principal); R20.0 Anesthesia of skin; R20.2 Paresthesia of skin
CPT/HCPCS: 95909

== ENCOUNTER → 2019-05-16 11:00 | Outpatient (CLI) | payer MEDICAID, SELFPAY ==
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
== END ==
PROVIDERS: Family Provider Family Medicine; PCP Family Medicine; Referring Provider Pain Medicine Pain Medicine; Visit Provider Pain Medicine Pain Medicine
DX: M25.562 Pain in left knee (principal)
CPT/HCPCS: 73560

== ENCOUNTER → 2020-11-13 07:56 | Outpatient (CLI) | payer MEDICAID, SELFPAY ==
--- NOTE | 2020-11-13 07:58 | CT_ITS ---
STUDY: CT BRAIN WITHOUT CONTRAST REASON FOR EXAM: Male, 35 years old. MIGRAINES RADIATION DOSAGE (If Supplied By Facility): CTDIvol = ( 44.99 ) mGy, DLP = ( 846.73 ) mGycm TECHNIQUE: Transaxial CT imaging of the brain was performed without administration of intravenous contrast material. Individualized dose optimization techniques were used for this CT. COMPARISON: No relevant priors. FINDINGS: Normal soft tissue structures. Normal calvarium. Normal size ventricles and extra-axial spaces for the patient''s age. Normal white matter tracts of the cerebral hemispheres. Normal basal ganglia and thalami. Normal brainstem. Normal cerebellum. There is no intracranial hemorrhage. There are no findings of an acute ischemic infarction. Normal visualized paranasal sinuses. CT/Brain/Head without Contrast IMPRESSION: Normal unenhanced CT scan of the brain. Electronically Signed: Del Busch MD at 11:39 EDT Tel , Service support ,
== END ==
PROVIDERS: PCP Nurse Practitioner Primary Care; Referring Provider Clinical Nurse Specialist Acute Care; Visit Provider Clinical Nurse Specialist Acute Care
DX: G43.109 Migraine with aura, not intractable, without status migrainosus (principal)
CPT/HCPCS: 70450